=== PATIENT | female | born 1975 | race Caucasian/White ===

== ENCOUNTER 2018-08-27 15:53 | Emergency (ER) | payer MEDICAID ==
[2018-08-27] MEDS ORDERED: NORMAL SALINE 1000 ML 1,000 ML IV ONE (16:04)
[2018-08-27] MEDS ORDERED: ONDANSETRON HCL INJ/PF 4 MG/2 ML SDV IV ONE ×2 (16:04→19:47)
[2018-08-27] MEDS ORDERED: LORAZEPAM INJ 2 MG/1 ML VIAL IV ONE (16:06)
--- NOTE | 2018-08-27 16:06 | ER Document Report ---
ED Medical Screen (RME) - General Chief Complaint: ETOH Abuse Stated Complaint: VOMITING,NAUSEA Time Seen by Provider: 08/27/18 16:04 Mode of Arrival: Wheelchair Information source: Patient, Relative TRAVEL OUTSIDE OF THE [place] IN LAST 30 DAYS: No - HPI Patient complains to provider of: ETOH abuse Onset: Other - Pt. states she has been drinking ETOH for the past 4 days -- wants help for drinking problem - Related Data Allergies/Adverse Reactions: prochlorperazine [From Compazine] Allergy (Verified 08/27/18 15:57) Physical Exam - Vital signs Vitals: Temp Pulse Resp BP Pulse Ox 98.6 F 85 18 136/99 H 97 08/27/18 15:58 08/27/18 15:58 08/27/18 15:58 08/27/18 15:58 08/27/18 15:58 Course - Vital Signs Vital signs: Temp Pulse Resp BP Pulse Ox 98.6 F 85 18 136/99 H 97 08/27/18 15:58 08/27/18 15:58 08/27/18 15:58 08/27/18 15:58 08/27/18 15:58
[2018-08-27 16:46] LABS: HEMATOCRIT 39.4 % (36.0-47.0); HEMOGLOBIN 13.5 g/dL (12.0-15.5); MEAN CORPUSCULAR HEMOGLOBIN 31.9 pg (27.0-33.4); MEAN CORPUSCULAR HGB CONC 34.3 g/dL (32.0-36.0); MEAN CORPUSCULAR VOLUME 93 fl (80-97); PLATELET COUNT 341 10^3/uL (150-450); RED BLOOD COUNT 4.23 10^6/uL (3.72-5.28); RED CELL DISTRIBUTION WIDTH 13.9 % (11.5-14.0); WHITE BLOOD COUNT 11.7 10^3/uL (4.0-10.5)
[2018-08-27 16:47] LABS: APPEARANCE,URINE SLIGHTLY-CLOUDY; BILIRUBIN,URINE NEGATIVE (NEGATIVE); COLOR,URINE YELLOW; GLUCOSE, URINE NEGATIVE (NEGATIVE); KETONES,URINE TRACE mg/dL (NEGATIVE); LEUKOCYTE ESTERASE,URINE NEGATIVE (NEGATIVE); NITRITE,URINE NEGATIVE (NEGATIVE); PROTEIN,URINE NEGATIVE (NEGATIVE); URINE SPECIFIC GRAVITY 1.014; UROBILINOGEN,URINE NEGATIVE mg/dL (<2.0)
--- NOTE | 2018-08-27 16:58 | ER Document Report ---
ED General - General Chief Complaint: ETOH Abuse Stated Complaint: VOMITING,NAUSEA Time Seen by Provider: 08/27/18 16:04 Mode of Arrival: Wheelchair Information source: Patient TRAVEL OUTSIDE OF THE [place] IN LAST 30 DAYS: No - HPI Patient complains to provider of: Alcoholism Onset: Other - 43-year-old female with a history of PTSD as well as hypertension that presents for evaluation of alcoholism, she has recurrent episodes of binge drinking over the last several years which she and her fianc say are generally triggered by a nightmare. She has been drinking every day for the last 4 days at least 1/5/day. She is become tremulous in the past when she stopped drinking but never had a seizure. - Related Data Allergies/Adverse Reactions: prochlorperazine [From Compazine] Allergy (Verified 08/27/18 15:57) Past Medical History - General Information source: Patient, Relative - Social History Smoking Status: Never Smoker Frequency of alcohol use: Heavy Drug Abuse: None Family History: None Patient has suicidal ideation: No Patient has homicidal ideation: No Renal/ Medical History: Denies: Hx Peritoneal Dialysis Musculoskeletal Medical History: Reports Hx Arthritis - rheumatoid Review of Systems - Review of Systems -: Yes All other systems reviewed and negative Physical Exam - Vital signs Vitals: Temp Pulse Resp BP Pulse Ox 98.6 F 85 18 136/99 H 97 08/27/18 15:58 08/27/18 15:58 08/27/18 15:58 08/27/18 15:58 08/27/18 15:58 Interpretation: Normal - General General appearance: Appears well, Alert - HEENT Head: Normocephalic, Atraumatic Eyes: Normal Pupils: PERRL - Respiratory Respiratory status: No respiratory distress Chest status: Nontender Breath sounds: Normal Chest palpation: Normal - Cardiovascular Rhythm: Regular Heart sounds: Normal auscultation Murmur: No - Abdominal Inspection: Normal Distension: No distension Bowel sounds: Normal Tenderness: Nontender Organomegaly: No organomegaly - Back Back: Normal, Nontender - Extremities General upper extremity: Normal inspection, Nontender, Normal color, Normal ROM, Normal temperature General lower extremity: Normal inspection, Nontender, Normal color, Normal ROM, Normal temperature, Normal weight bearing. No: Gemma's sign - Neurological Neuro grossly intact: Yes Cognition: Normal Orientation: AAOx4 Cara Coma Scale Eye Opening: Spontaneous Cara Coma Scale Verbal: Oriented [place] Coma Scale Motor: Obeys Commands [place] Coma Scale Total: 15 Speech: Normal Motor strength normal: LUE, RUE, LLE, RLE Sensory: Normal - Psychological Associated symptoms: Normal affect, Normal mood - Skin Skin Temperature: Warm Skin Moisture: Dry Skin Color: Normal Course - Re-evaluation Re-evalutation: 43-year-old female who presents for evaluation of alcohol dependency. She is slightly tremulous on examination though had drank prior to arrival. She has been on several day deluca but is not every day long-term drinker. The sound like they have been episodic in nature. She is never been to rehab for this specifically but has done detox in the past. Is concerned because her PTSD seems to be worsening, she thinks that her alcoholism is worsening as well and she is scared to lose her family. Because of her intermittent worsening of symptoms or concern for PTSD increasing in frequency she will await mental health evaluation tomorrow morning. While she is awaiting mental health evaluation and consideration of detox or medical treatment for her PTSD to change we will monitor and administer as needed Ativan. At this time I do not believe that she represents an immediate danger to herself or anyone else however as such this is a voluntary waiting for mental health if she were to want to leave she would be able. - Vital Signs Vital signs: Temp Pulse Resp BP Pulse Ox 98.6 F 85 18 136/99 H 97 08/27/18 15:58 08/27/18 15:58 08/27/18 15:58 08/27/18 15:58 08/27/18 15:58 - Laboratory Result Diagrams: 08/27/18 16:28 08/27/18 16:28 Laboratory results interpreted by me: 08/27/18 08/27/18 16:28 16:28 Glucose 131 H AST 163 H ALT 103 H Alkaline Phosphatase 130 H Urine Ketones TRACE H Discharge - Discharge Clinical Impression: Alcoholism, Agitation Condition: Stable
[2018-08-27 16:59] LABS: ALANINE AMINOTRANSFERASE 103 U/L (9-52); ALBUMIN 4.8 g/dL (3.5-5.0); ALCOHOL 277 mg/dL (NONE DETECTED); ALKALINE PHOSPHATASE 130 U/L (38-126); ANION GAP 19 (5-19); ASPARTATE AMINO TRANSFERASE 163 U/L (14-36); BILIRUBIN,DIRECT 0.4 mg/dL (0.0-0.4); BILIRUBIN,TOTAL 0.8 mg/dL (0.2-1.3); BLOOD UREA NITROGEN 12 mg/dL (7-20); CALCIUM 9.1 mg/dL (8.4-10.2); CARBON DIOXIDE 22 mmol/L (22-30); CHLORIDE 102 mmol/L (98-107); GLUCOSE 131 mg/dL (75-110); POTASSIUM 4.7 mmol/L (3.6-5.0); SODIUM 143.1 mmol/L (137-145); TOTAL PROTEIN 8.2 g/dL (6.3-8.2)
[2018-08-27 17:00] LABS: URINE AMPHETAMINES SCREEN NEGATIVE; URINE BARBITURATES SCREEN NEGATIVE; URINE BENZODIAZEPINES SCREEN NEGATIVE; URINE COCAINE SCREEN NEGATIVE; URINE MARIJUANA (THC) SCREEN NEGATIVE; URINE METHADONE SCREEN NEGATIVE; URINE PHENCYCLIDINE SCREEN NEGATIVE
[2018-08-27 17:12] LABS: ABSOLUTE LYMPHOCYTES# (MANUAL) 2.8 10^3/uL (0.5-4.7); ABSOLUTE MONOCYTES # (MANUAL) 0.8 10^3/uL (0.1-1.4); ABSOLUTE NEUTROPHILS# (MANUAL) 7.1 10^3/uL (1.7-8.2); BASOPHILS % (MANUAL) 3 % (0-2); EOSINOPHILS % (MANUAL) 5 % (0-6); LYMPHOCYTES % (MANUAL) 23 % (13-45); MONOCYTES % (MANUAL) 7 % (3-13); SEGMENTED NEUTROPHILS % (MAN) 61 % (42-78); TOTAL CELLS COUNTED 100
[2018-08-27 17:13] LABS: PLATELET COMMENT ADEQUATE; POLYCHROMASIA SLIGHT
[2018-08-27] MEDS: LORAZEPAM INJ 2 MG/1 ML VIAL IV PRN ×2 (17:13→21:20)
[2018-08-27] MEDS ORDERED: ONDANSETRON HCL INJ/PF 4 MG/2 ML SDV IV PRN (20:00)
[2018-08-28] MEDS: LORAZEPAM INJ 2 MG/1 ML VIAL IV PRN (01:37)
[2018-08-28 08:32] VITALS: BP 136/91
== END 2018-08-28 08:32 | disposition other institution (70) ==
LOC: ER 15:53
DX: R45.1 Restlessness and agitation (principal); F10.20 Alcohol dependence, uncomplicated; F43.10 Post-traumatic stress disorder, unspecified
CPT/HCPCS: 96376; 99284; 96361; 96374; 96375; 36415; 80307 ×2; 85025; 81025; 80053; 81001; J2060 ×2; J2405 ×2; J7030